=== PATIENT | male | born 1985 | race Caucasian/White ===

== ENCOUNTER 2022-03-05 02:34 | Outpatient (CLI) | payer OTHER, SELFPAY ==
[2022-03-05 22:06] LABS: Source Nasal/Nares
[2022-03-06 01:05] LABS: COVID-19 PCR Negative (Negative)
== END 2022-03-05 02:35 | disposition home or self-care (01) ==
PROVIDERS: Visit Provider Surgery
DX: Z20.822 Contact with and (suspected) exposure to COVID-19 (principal); Z01.818 Encounter for other preprocedural examination
CPT/HCPCS: 87635

== ENCOUNTER 2022-03-07 06:02 | Day surgery (SDC) | payer OTHER, SELFPAY ==
--- NOTE | 2022-03-06 11:06 | W.PM.DSUDISC ---
Discharge Plan Disposition Patient Disposition: HOME Condition: Good Discharge Details Reason For Visit: stomach and colon scope Attending Provider: Sia Hess Primary Care Provider: [facility] Home Meds and New Rx's Prescriptions: New pantoprazole [Protonix] 40 mg tablet,delayed release (DR/EC) 40 mg PO DAILY Qty: 90 4RF sucralfate [Carafate] 1 gram tablet 1 g PO QACHS Qty: 120 12RF Continued Excedrin Extra Strength 250-250-65 mg tablet 1 tab PO ONCE cetirizine 5 mg tablet 5 mg PO DAILY PRN echinacea 380 mg capsule 380 mg PO DAILY Rx Instructions: administer with meals epinephrine 0.3 mg/0.3 mL auto-injector 0.3 mg IM ONCE Rx Instructions: as a single dose; may repeat once Discontinued bisacodyl [Dulcolax (bisacodyl)] 5 mg tablet,delayed release (DR/EC) 5 mg PO ONCE Qty: 4 0RF Rx Instructions: Take according to provider's instructions for colonoscopy prep. polyethylene glycol 3350 17 gram/dose powder 17 g PO ONCE Qty: 238 0RF Rx Instructions: To be taken as directed by prescriber's office for colonoscopy prep. Discharge Instructions Instructions: Diverticulosis Diet (GEN), Gastritis (GEN) Additional Instructions: DSU Colonoscopy Post-Op Instructions Instructions for Everyone who is given Anesthesia: For your safety, please do the following for the next twenty-four (24) hours: *Do Not operate a motor vehicle (car, truck, motorcycle, etc.) *Do Not drink alcoholic beverages or use any recreational drugs for the first 24 hours or while taking pain medications. The medications in your body may have a reaction that can be dangerous. *Do Not make any important decisions or sign any important papers. Findings: moderate gastritis and duodenitis diverticula of the colon Continue with lifestyle modifications: no alcohol, tobacco products, Aspirin or NSAID's (ibuprofen, Motrin, Naprosyn, aleve, etc), soda pop/any carbonated beverages, caffeine (including tea & chocolate), and acidic foods, (tomatoes, citrus, onions, peppermints) spicy or fried/fatty foods. Do not lie down for 30 minutes after eating, and do not eat 2 hours prior to bedtime. Avoid wearing tight fitting clothing/ belts Follow up: My office will send a letter in 2 to 3 weeks time with the biopsy results. Protonix daily 1. No lifting over 20 pounds or strenuous activity for the first 24 hours after your procedure. After 24 hours there are no restrictions on your activity but you may feel fatigued for a few days. 2. After you arrive home you may have a light meal and return to your normal diet as you can tolerate it without feeling sick to your stomach. 3. You may have a bloated, gaseous feeling in your belly (abdomen) after a colonoscopy. Passing gas and belching will help. Walking or lying down on your left side with your knees flexed may relieve the discomfort. Call the office at [phone] (Office) or [phone] (Hospital) right away if you notice any of the following: a.Vomiting of blood or ?coffee ground stools?. b.Rectal bleeding 1Tbsp, blood clots or continuous bleeding. c.Severe belly (abdominal) pain. d.A hard distended belly (abdomen) and an inability to pass gas. 4. Please don?t expect to have a normal BM (bowel movement) for 2-3 days after your procedure. 5. If there are questions regarding the findings of your procedure, please contact your doctor 6. If you are unable to contact your doctor with a problem, contact the hospital at [phone]. 7. Continue all your regular medications unless directed otherwise. I understand the above instructions and have no questions. Signature of Patient or Adult Escort Name of Responsible Adult Escort Signature of Nurse Date/Time Activity:: See above Diet:: See above Discharge Orders Discharge Orders: Discharge Order (Routine); Ordered 03/06/22 Ordered By: Sia Hess DS: Diagnosis Discharge Diagnosis (1) Duodenitis: Status: Acute (2) Gastritis: Status: Acute (3) Diverticula of colon: Status: Acute (4) Liver cirrhosis secondary to nonalcoholic steatohepatitis (GONZÁLES): Status: Acute
--- NOTE | 2022-03-06 21:51 | W.COLOREPORT ---
Colonoscopy Report Date of procedure: 03/07/22 Pre-op diagnosis general: chronic abmdinal pain/diarrhea Post-op diagnosis procedure note: other (mild millan diverticula ) Surgeon: Sia Hess Anesthesia Type: General:No Airway Estimated blood loss (mL): 1 Pathology: other Complications: None Disposition: same day Prep: Miralax/Dulcolax Retraction Time: 7 Procedure Description: After informed consent was obtained the patient was taken to the procedure room and placed in a left decubitous position. Monitors were applied and a time out was done. The patients name, date of , procedure, allergies to medications and metal in their body was reviewed. The patient was then sedated. Once sedated and comfortable a rectal exam was done. External exam was normal. Internal exam revealed a normal sphincter tone and no palpable masses. The scope was then introduced and retrofelexed. No internal hemorrhoids were identified. The scope was then advanced to the cecum without difficulty. The TI and appendiceal orifice were identified. The prep was BB PS 2 in the right colon all other segments for a total 8. The scope was then slowly retracted over 7 minutes back into the rectum. There are no polyps or AVMs visualized today. The mucosa appears pink and healthy. he does have a few small scattered diverticuli throughout the entirety of the colon. The scope was removed and the patient was woken up and taken back to Same day surgery in stable condition. Biopsies are taken at the cecum, 80 cm, 60 centimeters, 40 cm and the rectum. All specimens are retrieved and no bleeding is noted. The patient tolerated the procedure well and there were no immediate complications. Follow up: The patient should have a repeat colonoscopy at age 44 years unless they develop changes in bowel habits or other new gastrointestinal complaints.
--- NOTE | 2022-03-06 21:54 | ENDO_ITS ---
Date of service: 03/07/22 Time of Service: 08:30 Endoscopy Report DATE OF PROCEDURE: 03/07/22 PRE-OP DIAGNOSIS: chronic abdominal pain/diarrhea POST-OP DIAGNOSIS: other (moderate gastritis/duodenitis ) SURGEON: Sia Hess ANESTHESIA TYPE: General:No Airway ESTIMATED BLOOD LOSS: 1 PATHOLOGY: other COMPLICATIONS: None DISPOSITION: same day PROCEDURE DESCRIPTION: After informed consent was obtained the patient was take to the procedure room and placed in a supine position. Monitors were applied and a time out was done. The patients name, date of , procedure type, allergies to medications and metal in their body was reviewed. A bite block was placed and the patient was sedated. Once sedated and comfortable the gastroscope was advanced through the oropharynx which was grossly normal into the esophagus. The proximal and mid- esophagus were nl. There are no esophageal erosions, varices, diverticula, or stricture visualized today.. The scope was advanced into the stomach and through the pylorus into the 3rd portion of the duodenum. The duodenum was noted: moderate gastritis with no ulceration. This is confined to the duodenal bulb. In D2 and beyond the mucosa is normal. Biopsies were done, all specimens are retrieved and no bleeding is noted. The scope was retracted back into the stomach and biopsies were done to rule out H. pylori. There were no ulcers. There is moderate gastritis radiating from the antrum in a striped fashion. The dependent portions of the stomach show a diffuse patchy moderate erythema. The scope was retroflexed. The cardia and fundus were noted to be normal. There were no a hiatal hernia noted. The scope was retracted back into the esophagus and biopsies were done of the GE junction to rule out Horta's. The Z line was regular. The GE junction was at 42 cm and biopsies were taken. Biopsies are taken of the distal esophagus at 40 cm the scope was removed and the patient was woken up and taken back to [facility] in stable condition.
[2022-03-07 06:36] VITALS: BP 140/99; PULSE 92; RESP 18; TEMP 36.5; O2SAT 97
[2022-03-07] MEDS: Lactated Ringers 1,000 ML 80 ML IV (07:05)
--- NOTE | 2022-03-07 07:12 | W.ANESPRE ---
General Info Date of Service Date Performed: 03/07/22 Height: 6 ft 3 in Weight: 131.5 kg Body Mass Index (BMI): 36.2 Surgical Procedure: Operation Date: 03/07/22 07:35 Proposed Procedure Side Surgeon p Colonoscopy/Gastroscopy w/Biopsies Sia Hess DO Meds Allergies and Home Medications Allergies Allergy/AdvReac Type Severity Reaction Status Date / Time Horse/Equine Containing Allergy Severe Verified 03/07/22 06:42 Products mushroom Allergy Severe Verified 03/07/22 06:42 Penicillins Allergy Severe Verified 03/07/22 06:39 Home Medication Medication Instructions Recorded cetirizine 5 mg tablet 5 mg PO DAILY PRN 01/31/22 echinacea 380 mg capsule 380 mg PO DAILY 01/31/22 epinephrine 0.3 mg/0.3 mL 0.3 mg IM ONCE 01/31/22 injection, auto-injector [id number] 250 1 tab PO ONCE 02/07/22 mg-250 mg-65 mg tablet (Excedrin Extra Strength) bisacodyl 5 mg tablet,delayed 5 mg PO ONCE #4 tabs 02/07/22 release (Dulcolax (bisacodyl)) polyethylene glycol 3350 17 17 g PO ONCE #238 grams 02/07/22 gram/dose oral powder Current Visit Medications: Current Medications Generic Name Dose Route Start Last Admin Trade Name Freq PRN Reason Stop Dose Admin Hyoscyamine Sulfate 0.125 mg 03/06/22 21:49 Hyoscyamine 0.125 Mg Sl/Oral/Chew SL DIRECTED PRN Ringer's Solution 1,000 mls @ 80 mls/hr 03/07/22 06:00 IV 04/05/22 23:59 INFUSION [facility] IV Miscellaneous Supplies 1 each 03/07/22 06:00 Iv Access IV 04/05/22 23:59 DIRECTED [facility] Ondansetron HCl 4 mg 03/06/22 21:49 Ondansetron 4 Mg/2 Ml Vial IVP Q4H PRN PRN Nausea / Vomiting Sodium Chloride 0 ml 03/07/22 06:00 Normal Saline Flush 10 Ml Syr IV 04/05/22 23:59 PRN PRN Sodium Chloride 0 ml 03/07/22 06:00 Normal Saline 10 Ml Vial IJ 04/05/22 23:59 DIRECTED PRN Sterile Water 0 ml 03/07/22 06:00 Water,Injection,Sterile 10 Ml Vial IJ 04/05/22 23:59 DIRECTED PRN PFSH Active Problems Active Problems: Problem Status Onset Code Chronic diarrhea K52.9 Abdominal pain R10.9 Medical History Medical History (Updated 03/07/22 @ 06:52 by Yoko Roland) Alcohol use Anesthesia complication Severe PTSD hx nightmares/night terrors & combative/aggressive wake-up. Soft wake up, avoid touching if possible. Hemorrhoids Hx of dislocation of hip pt. reports having anesthesia for manipulation Hx of fracture of leg R tibia, no surgery per pt Hx of hemorrhagic cystitis Hypertension PTSD (post-traumatic stress disorder) Medical History Comments:: See combative wake up note severe PTSD. Pt. states his mother gets tachycardia and buids a resistance to it. Surgical History Surgical History Hx of hemorrhoidectomy Tobacco Smoking/Tobacco Use Status: Current every day Tobacco Type: cigarettes Smoking packs per day: 0.5 Smoking cigarettes per day: 7 Alcohol Alcohol Intake: current Alcohol intake frequency: 3 or more drinks per day Alcohol type: beer, wine and hard liquor Substance Use Substance use: Never Substance use type: does not use Details: alcohol: t-7 Vital Signs and Lab Results Vital Signs Most Recent Vital Signs in EMR: Most Recent Vital Signs Temp Pulse Resp BP Pulse Ox 36.5 C 92 H 18 140/99 H 97 03/07/22 06:36 03/07/22 06:36 03/07/22 06:36 03/07/22 06:36 03/07/22 06:36 Lab Results Blood Type / Crossmatch: No Data to Display Complete Blood Count: No Data to Display Complete Metabolic Panel: No Data to Display Liver Function Panel: No Data to Display Coagulation Panel: No Data to Display Cardiac Panel: No Data to Display Arterial Blood Gas: No Data to Display Venous Blood Gas: No Data to Display Pancreas Panel: No Data to Display Thyroid Panel: No Data to Display Infectious Disease: Coronavirus (COVID-19)(PCR) Negative (Negative) 03/05/22 12:30 Coronavirus 2019 Source Nasal/Nares 03/05/22 12:30 Blood Cultures: No Data to Display Toxicology Panel: No Data to Display Anesthesia Assessment and Plan Anesthesia History Personal History: Other (Emergence delerium) Family History: Other (Resistance to anesthesia ) Exercise Tolerance Exercise Tolerance: Metabolic Equivalents>4 Pertinent Negatives Pertinent Negatives: No Symptoms of GERD, No Major Cardiovascular Symptoms or Complaints, No Major Pulmonary Symptoms or Complaints (Suspected FLORES) and No History of CVA/TIA Cardiac & Pulmonary Exam Cardiac Exam: Normal S1/S2 Heart Sounds Pulmonary Exam: Clear Bilateral Breath Sounds Implantable Cardiac Device Does patient have a Pacemaker or an ICD?: No Airway Exam Known Difficult Airway: No Mallampati Class: 1 Mouth Opening: Normal (> 3cm) Thyromental Distance: Greater than 3 cm Facial Hair: Full [place] Neck Range of Motion: Full ROM Neck Circumference: Normal Teeth Condition: Normal Dentition ASA Classification ASA Score: ASA 2 Emergency Case?: No NPO Status NPO Status: NPO Clears >2 hours, Solids >8 hours Anesthesia Plan Resuscitation Status: Full Code Anesthesia Technique: General Anesthesia Airway Planned: Natural Airway Monitors Used: Standard Monitors
[2022-03-07 07:17] VITALS: BMI 36.2
--- NOTE | 2022-03-07 08:03 | BOWEL_PTH ---
PATIENT: Josie Trujillo LOC: [facility] U#:[id number] AGE/SX: 36/M ROOM: RE03/07/[address]: Sia Hess : 1985 BED: DIS: 03/07/2022 SPEC #: [id number] RECD: 03/07/22 10:33 STATUS: EMEKA REShayna #: [id number] MILES: 03/07/22 08:[address]: Sia Hess DEPT: Surgical Specimen RECD BY: Nereyda Alva ENTERED: 03/07/22 10:44 SP TYPE: Bowel OTHR DR: [facility] Tissues: 1 - BIOPSY BOWEL 2 - BIOPSY BOWEL 3 - STOMACH BIOPSY 4 - STOMACH BIOPSY 5 - ESOPHAGUS BIOPSY 6 - ESOPHAGUS BIOPSY 7 - BIOPSY BOWEL 8 - BIOPSY BOWEL 9 - BIOPSY BOWEL 10 - BIOPSY BOWEL 11 - BIOPSY BOWEL Procedures: GROSS AND MICRO LEVEL 4 Comments: [id number]
[2022-03-07 09:05] VITALS: BP 129/88; PULSE 84; RESP 18; TEMP 36.4; O2SAT 93
--- NOTE | 2022-03-07 09:09 | W.ANESPOSTOP ---
Postoperative Evaluation Date, Time and Location Date Performed: 03/07/22 Time Performed: 09:09 Patient Location: Day Surgery Unit Vital Signs Most Recent Imported Vital Signs: Most Recent Vital Signs Temp Pulse Resp BP Pulse Ox 36.5 C 92 H 18 140/99 H 97 03/07/22 06:36 03/07/22 06:36 03/07/22 06:36 03/07/22 06:36 03/07/22 06:36 Most Recent Manually Entered Vital Signs: Adult Blood Pressure: 129/88 Heart Rate: 78 Respirations: 10 Oxygen Saturation (%): 93 Temperature (C): 36.3 C Pain Score (0-10 Scale): 0 Pain Score Most Recent Pain Score: Most Recent Pain Score Pain Level 5 03/07/22 06:36 Assessment Mental Status: Awake (Alert & Oriented to Patient Baseline) Airway and Respiratory Function: Patent airway with normal (patient baseline) respiratory exam Cardiovascular Function: Hemodynamically Stable Hydration Status: Adequately Hydrated Nausea & Vomiting: No Nausea or Vomiting Pain: Pt. Denies Any Pain Peripheral Nerve Block: Patient did not receive a nerve block
[2022-03-07 09:10] VITALS: BP 129/88; PULSE 78; RESP 10; TEMPC 36.3; O2SAT 93
[2022-03-07 09:38] VITALS: BP 133/88; PULSE 77; RESP 18; TEMP 36.5; O2SAT 94
== END 2022-03-07 10:06 | disposition home or self-care (01) ==
PROVIDERS: Visit Provider Surgery
PROC: (CPT 45380; principal; 2022-03-07 07:30)
DX: R10.9 Unspecified abdominal pain (principal); R19.7 Diarrhea, unspecified; K57.30 Diverticulosis of large intestine without perforation or abscess without bleeding; K29.70 Gastritis, unspecified, without bleeding; K29.80 Duodenitis without bleeding; K63.89 Other specified diseases of intestine; K22.89 Other specified disease of esophagus; K31.89 Other diseases of stomach and duodenum
CPT/HCPCS: 45380; 43239; 88305